=== PATIENT | male | born 1955 ===

== ENCOUNTER → 2020-12-16 08:48 | Outpatient (CLI) | payer OTHER, SELFPAY ==
[2020-12-16 12:01] LABS: COVID19 -Nasal RAPID Negative (Negative)
== END ==
PROVIDERS: PCP Family Medicine; Visit Provider Nurse Practitioner Family
DX: Z20.822 Contact with and (suspected) exposure to COVID-19 (principal); Z01.812 Encounter for preprocedural laboratory examination
CPT/HCPCS: 87635

== ENCOUNTER → 2021-01-27 10:52 | Outpatient (CLI) | payer OTHER, SELFPAY ==
[2021-01-27 14:48] LABS: COVID19 -Nasal RAPID Negative (Negative)
== END ==
PROVIDERS: PCP Family Medicine; Referring Provider Physician Assistant; Visit Provider Physician Assistant
DX: Z01.812 Encounter for preprocedural laboratory examination (principal); Z20.822 Contact with and (suspected) exposure to COVID-19
CPT/HCPCS: 87635

== ENCOUNTER 2021-01-29 07:24 | Day surgery (SDC) | payer OTHER, SELFPAY ==
[2021-01-29 07:44] VITALS: BP 134/93; PULSE 98; RESP 16; TEMP 36.2; O2SAT 100; BMI 29.2
[2021-01-29] MEDS: SODIUM CHLORIDE 0.9% 1,000 ML 84 ML IV (08:10)
--- NOTE | 2021-01-29 08:45 | PM.HP.1 ---
History of Present Illness History of Present Illness Date Patient Seen: 01/29/21 Chief complaint: SDC Narrative: Family historycolon polyps Patient History Family & Social History Social History: household members spouse Tobacco & Substance use: Smoking Status Never smoker alcohol intake frequency 0-2 drinks per day Substance Use Type does not use Meds Home Medications and Allergies Home Medications Medication Instructions Recorded Confirmed Type aspirin 81 mg chewable tablet 81 mg PO QDAY #30 ctb 11/13/15 01/29/21 History cholecalciferol (vitamin D3) 10 400 unit PO DAILY #0 11/13/15 01/29/21 History mcg (400 unit) capsule (Vitamin D3) doxazosin 1 mg tablet 1 mg DAILY #0 11/13/15 01/29/21 History rosuvastatin 10 mg tablet (Crestor) 10 mg OR DAILY #0 11/13/15 01/29/21 History Allergies Allergy/AdvReac Type Severity Reaction Status Date / Time No Known Drug Allergies Allergy Verified 01/29/21 07:41 Exam Vital Signs (past 8 hours): - 01/29/21 07:44 Temperature 97.1 F L Pulse Rate 98 H Respiratory Rate 16 Blood Pressure 134/93 H Pulse Oximetry 100 Oxygen Delivery Method Room Air Narrative Exam Narrative: Oropharynx free of lesions Chest clear to auscultation percussion Cardiac exam reveals no S3 or murmur Assessment & Plan Assessment & Plan narrative: Family history of colon polyps need for follow-up colonoscopy at a 5 year interval. Risks, benefits, alternatives have been explained. Time Spent With Patient Critical Care time: I spent a total of [] minutes of critical care time on this patient's care today; this time is exclusive of procedural time.
[2021-01-29 08:46] VITALS: BP 100/70; PULSE 73; RESP 15; TEMP 36.4; O2SAT 94
--- NOTE | 2021-01-29 08:48 | PM.OP.COLON ---
Operative Date/Time/Diagnoses Date of procedure: 01/29/21 Pre-op diagnosis: See indication and findings Procedure & Clinicians Study performed: Colonoscopy Indications: Family history of colon polyps Surgeon: Mati Weaver Procedure Notes Procedure in detail: After informed consent was obtained the patient was placed in left lateral decubitus position. The video colonoscope was introduced the rectum slowly advanced to the cecum. Preparation was good. On slow withdrawal mucosa was carefully examined. Scope removed. The patient tolerated procedure well. Blood loss none Complications none Sedation MAC Findings 1. Extensive sigmoid is somewhat left diverticulosis 2. Otherwise negative colonoscopy to cecum With another negative colonoscopy Mr. Jeffers could have follow-up colonoscopy in 7 years.
[2021-01-29 08:50] VITALS: BP 88/64; PULSE 79; RESP 14; O2SAT 96
[2021-01-29 08:51] VITALS: BP 90/61; PULSE 83; RESP 14; O2SAT 94
[2021-01-29 08:58] VITALS: BP 109/74; PULSE 90; RESP 14; O2SAT 94
[2021-01-29 09:07] VITALS: BP 113/83; PULSE 74; RESP 15; TEMP 36.3; O2SAT 96
--- NOTE | 2021-01-29 09:13 | SUR.PHASEII ---
Pt ready to go, called, voice mail left, awaiting pt to call back. Belly soft tolerated po liquids.
--- NOTE | 2021-01-29 09:21 | SUR.PHASEII ---
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
== END 2021-01-29 09:21 | disposition home or self-care (01) ==
PROVIDERS: PCP Family Medicine; Referring Provider Internal Medicine Gastroenterology; Visit Provider Internal Medicine Gastroenterology
PROC: 0DJD8ZZ Inspection of Lower Intestinal Tract, Via Natural or Artificial Opening Endoscopic (ICD-10-PCS; CPT 45378; principal; 2021-01-29 08:30)
DX: Z12.11 Encounter for screening for malignant neoplasm of colon (principal); Z83.71 Family history of colonic polyps; K57.30 Diverticulosis of large intestine without perforation or abscess without bleeding
CPT/HCPCS: 45378; J2704

== ENCOUNTER → 2024-01-05 08:49 | Outpatient (CLI) | payer MEDICARE, OTHER, SELFPAY ==
--- NOTE | 2024-01-05 08:55 | DI.RAD.S_ITS ---
PROCEDURE: XR HAND LT 3V INDICATIONS: LEFT THUMB PAIN TECHNIQUE: 3 views of the left hand acquired. COMPARISON: None. 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 Moderate degenerative changes at the left 1st metacarpophalangeal joint. Mild degenerative changes at the radiocarpal, intercarpal joints. No radiographic evidence of displaced fracture or high attenuation soft tissue foreign body. If symptoms persist or worsen, MRI could be performed Dictated by: Braden Card M.D. on 01/08/2024 at 9:06 Approved by: Braden Card M.D. on 01/08/2024 at 9:09
--- NOTE | 2024-01-05 08:55 | DI.RAD.S_ITS ---
PROCEDURE: XR HAND RT 3V INDICATIONS: RIGHT THUMB PAIN TECHNIQUE: 3 views of the right hand acquired. COMPARISON: None. FINDINGS / IMPRESSION: Moderate degenerative changes of the right 1st carpal-metacarpal joint with radial subluxation. Mild degenerative changes at the radiocarpal, intracarpal, metacarpal-phalangeal and 1st interphalangeal joints. No radiographic evidence of displaced fracture or high attenuation soft tissue foreign body If symptoms persist or worsen, or there is high clinical suspicion of right hand abnormality, MRI could be performed. Dictated by: Braden Card M.D. on 01/08/2024 at 9:39 Approved by: Braden Card M.D. on 01/08/2024 at 10:10
== END ==
PROVIDERS: PCP Family Medicine; Referring Provider Family Medicine Sports Medicine; Visit Provider Family Medicine Sports Medicine
DX: M79.644 Pain in right finger(s) (principal); M79.645 Pain in left finger(s)
CPT/HCPCS: 73130